=== PATIENT | male | born 1970 | race Caucasian/White ===

== ENCOUNTER 2016-09-29 14:49 | Inpatient (IN) | payer BC ==
[2016-09-29] MEDS ORDERED: SODIUM CHLORIDE 0.9% 1000ML 1,000 ML IVS ONE ×2 (15:10→15:58)
--- NOTE | 2016-09-29 15:20 | ED.PDOC ---
History of Present Illness - General Chief Complaint: GI Problem Stated Complaint: diarrhea x3 days Time Seen by Provider: 09/29/16 15:07 Information Source: patient, RN notes reviewed, Vital Signs reviewed Exam Limitations: no limitations - History of Present Illness Initial Comments: Patient reports explosive diarrhea for 3 days. + nausea, no vomiting. Yesterday he took a whole bottle of Imodium and some pills. Since then he has had 2 episodes of diarrhea. No blood in his stool. Reports abd pain that is intermittent, sharp and crampy. He did pass out last night but denies any injury. Here because he has hardly urinated at all in 2 days and feels he is very dehydrated. Abdominal Pain Onset Location: generalized abdomen Pain Radiation: no radiation Quality: moderate, cramping, intermittent, stabbing Timing/Duration: days - 3 Improving Factors: medication - Impdium Worsening Factors: nothing Associated Symptoms: diarrhea, fatigue, nausea/vomiting, syncope Review of Systems - Review of Systems Constitutional: States: chills, malaise. Denies: fever Respiratory: States: no symptoms reported. Denies: short of breath Cardiology: States: syncope. Denies: chest pain, palpitations Gastrointestinal/Abdominal: States: see HPI, abdominal pain, diarrhea, nausea. Denies: vomiting Musculoskeletal: States: no symptoms reported Skin: States: no symptoms reported Neurological: States: no symptoms reported Past Medical History (General) - Patient Medical History Hx Hypertension: Yes - Vaccination History Hx Tetanus, Diphtheria Vaccination: No Hx Influenza Vaccination: No Hx Pneumococcal Vaccination: No - Social History Hx Tobacco Use: No Hx Alcohol Use: No Hx Substance Use: No Hx Substance Use Treatment: No Hx Depression: No - Activities of Daily Living Hospice Agency (if applicable):: None - Female History Patient is a Female of Child Bearing Age (10 -59 yrs old): No Patient : No Family Medical History - Family History Mother Family History: Unknown Physical Exam - Physical Exam General Appearance: Alert, Comfortable, No apparent distress, Well Developed, Well Groomed, Well Nourished Eyes, Ears, Nose, Throat Exam: other - Dry mucous membranes Neck: non-tender, full range of motion, supple, normal inspection Respiratory: chest non-tender, lungs clear, normal breath sounds, no respiratory distress, no accessory muscle use Cardiovascular/Chest: normal peripheral pulses, regular rate, rhythm, no edema, no gallop, no JVD, no murmur Peripheral Pulses: 2+ Gastrointestinal/Abdominal: non tender, soft, no organomegaly, no pulsatile mass , abnormal bowel sounds - hyperactive Extremity: normal range of motion, non-tender, normal inspection, no pedal edema Neurologic: no motor/sensory deficits, alert, normal mood/affect, oriented x 3 Skin Exam: normal color, warm/dry Comments: Vital Signs - 24 hr 09/29/16 14:55 Temperature 97.5 F L Pulse Rate [ 81 pulse ox] Respiratory 20 Rate Blood Pressure 119/84 [Left Arm] O2 Sat by Pulse 97 Oximetry Progress - Progress Progress: 09/29/16 15:21 Patient with what sounds to be severe dehydration due to diarrhea. Will check labs, especially kidney function. Hydrate with IV fluids. 09/29/16 16:00 Discussed lab results with patient and . Will admit to hospital for dehydration with acute renal failure. Patient discussed with Chinyere Roman NP - hospitalist, who agrees to admission. - Results/Orders Results/Orders: Laboratory Tests 09/29/16 15:05 WBC 16.5 H RBC 6.95 H* Hgb 21.8 H* Hct 66.8 H* MCV 96.2 H MCH 31.3 H MCHC 32.7 L RDW 15.5 H Plt Count 233 MPV 10.9 H Absolute Neuts (auto) 12.20 H Absolute Lymphs (auto) 2.10 Absolute Monos (auto) 1.90 H Absolute Eos (auto) 0.20 Absolute Basos (auto) 0.00 Neutrophils % 74.1 Lymphocytes % 12.7 L Monocytes % 11.6 H Eosinophils % 1.5 Basophils % 0.1 Sodium 134 L Potassium 4.8 Chloride 105 Carbon Dioxide 21 Anion Gap 12.8 BUN 42 H Creatinine 4.51 H BUN/Creatinine Ratio 9.3 L Random Glucose 68 L Serum Osmolality 277.0 Calcium 8.8 Total Bilirubin 1.2 H AST 29 ALT 34 Alkaline Phosphatase 65 Serum Total Protein 8.2 Albumin 4.7 Globulin 3.5 Albumin/Globulin Ratio 1.3 Departure - Departure Clinical Impression: Diarrhea, Severe dehydration Acute renal failure Qualifiers: Acute renal failure type: unspecified Qualifier Code: (N17.9) Acute kidney failure, unspecified Time of Disposition: 16:02 Disposition: Admit Patient Condition: Poor Departure Forms: ED Discharge - Pt. Copy, Patient Portal Self Enrollment Referrals: Nathaniel Hanson MD [Primary Care Provider] - 1-2 Weeks Decision To Admit - Decistion To Admit Decision to Admit Reason: Admit from ER - Acute renal failure, Severe Dehydration
--- NOTE | 2016-09-29 15:41 | RAD ---
EXAM DESCRIPTION: Abdomen Flat Upright CLINICAL HISTORY: 46 years Male, abd pain/diarrhea IMPRESSION: 2 views of the abdomen reveal no free air. A few air-fluid levels are noted which can be seen with a mild ileus. No evidence of dilated small bowel loops at this time. Electronically signed by: J Luis Pereira MD 09/29/2016 3:40 PM CDT
--- NOTE | 2016-09-29 16:25 | HP ---
SUPERVISING PHYSICIAN: Jose Ramon Ackerman MD CHIEF COMPLAINT: Abdominal pain and explosive diarrhea times 48 hours. HISTORY OF PRESENT ILLNESS: This is a 46-year-old male patient who says he started with explosive diarrhea about every 15 minutes on Tuesday. He denied any nausea or vomiting. It actually slowed down to about every 30 minutes during the next day and yesterday he actually took a whole bottle of Imodium as well as some antidiarrheal pills. He was in the shower today and he had not urinated since the night before and he was clean up some stool that had been in the shower and he passed out. He woke up later. There was no known traumatic injury. He had not urinated in 36 hours. At that point, he decided to come into the Emergency Room. In the Emergency Room, he was given almost 2 liters of fluid. He had no stools in the Emergency Room. His hemoglobin was 21.8, hematocrit 66.8, WBCs 16.5, BUN 42, creatinine 4.51. The patient has multiple family members, including a grandchild, that have had diarrhea and he thinks his grandson has rotavirus, but he is unsure of that diagnosis. I was called for admission for severe dehydration and acute renal failure. PAST MEDICAL HISTORY: 1. Acquired renal cyst. 2. Essential hypertension. 3. Testosterone deficiency. 4. Elevated hematocrit. PAST SURGICAL HISTORY: 1. Vasectomy in 2015. 2. Lumbar laminectomy in 1998. 3. Right thumb amputation in 2013. OUTPATIENT MEDICATIONS: 1. Amlodipine. 2. Edarbi. 3. Testosterone 400 mg IM weekly. ALLERGIES: NO KNOWN DRUG ALLERGIES. SOCIAL HISTORY: He is . He has two children and one stepchild. He denies any tobacco, ETOH or illicit drug use. REVIEW OF SYSTEMS: GENERAL: He complains of weakness and fatigue, denies any weight changes or fever. HEENT: Denies sinus symptoms, ear pain, vision changes or sore throat. RESPIRATORY: Denies wheezing, coughing or shortness of breath. CARDIAC: Denies chest pain, palpitations or tachycardia. GASTROINTESTINAL: As per the history of present illness with the addition that he feels like his stomach is very gassy. In fact, he calls it "gurgling" with an extreme amount of belching and epigastric discomfort. GENITOURINARY: Denies hematuria, dysuria or polyuria. NEUROLOGIC: Denies headache, dizziness, or seizures. PHYSICAL EXAMINATION: VITAL SIGNS: Afebrile. Heart rate 84. Blood pressure 119/84. Respiratory rate 20. O2 saturation 97%. GENERAL: This is a 46-year-old male patient who is lying in his hospital bed. He is in no acute distress. HEENT: Normocephalic, atraumatic. Pupils are equal and reactive. Oropharynx is clear. Oral mucous membranes are dry. Lips are cracked. NECK: Supple without mass. RESPIRATORY: Clear to auscultation bilaterally. CHEST: There is equal rise and fall of the chest with inspiration and expiration. CARDIAC: Regular rate and rhythm. ABDOMEN: Soft, nondistended, nontender. Bowel sounds are very hyperactive. EXTREMITIES: No cyanosis, clubbing or edema. He does have poor skin turgor. NEUROLOGIC: Awake, alert and oriented times three. LABORATORY: As per the history of present illness plus his sodium is 134, potassium 4.8, chloride 105, carbon dioxide 21. Total bilirubin 1.2. Abdominal x-ray shows two views of the abdomen, but revealed no free air. A few air-fluid levels are noted which can be seen with a mild ileus. No evidence of dilated small bowel loops at this time. All other labs and films have been reviewed via the EMR. ASSESSMENT: 1. Acute renal failure. 2. Diarrhea, most likely due to viral gastroenteritis. 3. Leukocytosis, most likely due to dehydration and gastroenteritis. 4. Dehydration, due to #2.. 5. Hypertension. 6. History of elevated hematocrit on high dose testosterone therapy. PLAN: We will admit the patient to the hospital. I will continue to hydrate him. We will repeat his labs in the morning. I have also added stools studies as well as a UA. I have also done an H. pylori antibody test. He will have proton pump inhibitor for ulcer prophylaxis and Lovenox for deep venous thrombosis prophylaxis. We will have to monitor his labs closely and followup as needed. Hopefully he can be discharged in the next couple of days. He is getting a very high amount of weekly testosterone, and I have encouraged him to speak with his primary care provider about his large administration of testosterone. We will continue to follow the patient closely and followup as needed. Dr. Ackerman is the collaborating physician and available for consultation. #[id number] [facility]
[2016-09-29] MEDS ORDERED: DEX 5% W/NACL 0.45% 1000ML 1,000 ML IVS ONE (17:52)
[2016-09-29] MEDS: DEX 5% W/NACL 0.45% 1000ML 1,000 ML IVS PRN (18:03)
[2016-09-29] MEDS ORDERED: SODIUM CHLORIDE 0.9% (FLUSH) 10 ML SYG IV PRN (19:14)
[2016-09-29] MEDS ORDERED: ACETAMINOPHEN 325 MG TAB PO PRN (19:19)
[2016-09-29] MEDS ORDERED: TEMAZEPAM 15 MG CAP PO PRN (19:19)
[2016-09-29] MEDS ORDERED: IV SET AND CAP CHANGE INJ INJ SCH (19:30)
[2016-09-29] MEDS ORDERED: ENOXAPARIN SODIUM 30 MG/0.3 ML SYG SUBCU SCH (19:30)
[2016-09-29] MEDS ORDERED: PANTOPRAZOLE SODIUM IV 40 MG VIAL IV SCH (19:30)
[2016-09-29] MEDS ORDERED: ALUMINUM & MAGNESIUM HYDROXIDE 30 ML UD PO ONE (20:00)
[2016-09-30] MEDS: DEX 5% W/NACL 0.45% 1000ML 1,000 ML IVS PRN ×2 (01:58→11:00)
[2016-09-30] MEDS ORDERED: DEXTROSE 5% 1000ML 1,000 ML IVS ONE ×2 (11:44→15:03)
--- NOTE | 2016-09-30 13:35 | PN ---
SUPERVISING PHYSICIAN: Jose Ramon Ackerman MD DATE: 09/30/16 SUBJECTIVE: The patient is sitting up in his bed with no complaints of chest pain, shortness of breath, nausea, vomiting, diarrhea. He states he feels so much better than yesterday. He is actually ambulating in the [place]ora and continues to have no diarrhea and he is voiding sufficiently. OBJECTIVE: VITAL SIGNS: Afebrile. Heart rate 85. Blood pressure 120/73. Respiratory rate 20. O2 saturation 97% on room air. Intake is 3,348 cc and output is 2700 cc. GENERAL: This is a 46-year-old male patient laying in his hospital bed. He is in no acute distress. LUNGS: Clear to auscultation bilaterally. CARDIAC: Regular rate and rhythm. ABDOMEN: Soft, nontender, nondistended. Bowel sounds are positive. EXTREMITIES: No cyanosis, clubbing or edema. NEUROLOGIC: Awake, alert and oriented times three. LABORATORY: WBC have decreased from 16.5 to 11.1. Hemoglobin 19 and has decreased from 21.8. Hematocrit from 66.8 to 57 today. Sodium 136, potassium 4.7, chloride 113, carbon dioxide 20, BUN has decreased from 42 yesterday to 36 today. Creatinine was 4.51 yesterday and 2.53 today. Calcium 8.3, total bilirubin 1.1. Urinalysis is basically within normal limits. H. pylori is negative. Stool occult blood is positive. Stool Norovirus is pending. Rotavirus antigen is negative. Preliminary stool culture shows no enteric pathogens isolated at 24 hours. All other labs and films have been reviewed via the EMR. ASSESSMENT: 1. Acute renal failure. 2. Diarrhea, most likely due to viral gastroenteritis. 3. Leukocytosis, most likely due to dehydration and gastroenteritis. 4. Dehydration, due to #2.. 5. Hypertension. 6. History of elevated hematocrit on high dose testosterone therapy. PLAN: We will continue present supportive care. I have discontinued his primary IV and I am going to give him 1 liter of D5W with 1.5 amps of bicarb. His creatinine has dropped 2 points overnight, but is still quite high, so I will repeat those labs studies in the morning. Hemoglobin and hematocrit have also improved, but he most likely runs elevated H&H due to his high testosterone dosage. I have not restarted his blood pressure meds yet so will watch his b/p closely. He is walking around in the halls and ambulating without problems. He is also voiding without problems, so we will continue to monitor him closely. He should be ready to go home tomorrow with close followup with Dr. Hanson to recheck his creatinine as well as to check his H&H. I have strongly suggested that he reevaluate and discuss with his primary care physician his testosterone dosage and he has agreed that he does take too much. We will continue to monitor closely and followup as needed. Dr. Ackerman is the collaborating physician and available for consultation. #[id number] [facility]
[2016-09-30] MEDS ORDERED: SODIUM BICARBONATE 10MEQ/10ML 75 MEQ in DEXTROSE 5% 1000ML 1,000 ML IV ONE (14:34)
[2016-09-30] MEDS ORDERED: SODIUM BICARBONATE VIAL 50 MEQ/50 ML VIAL ONE (15:02)
[2016-09-30] MEDS ORDERED: SODIUM BICARBONATE VIAL 75 MEQ in DEXTROSE 5% 1000ML 1,000 ML IV ONE (16:00)
[2016-09-30] MEDS ORDERED: PANTOPRAZOLE SODIUM IV 40 MG VIAL IV SCH (21:00)
[2016-09-30] MEDS ORDERED: ENOXAPARIN SODIUM 30 MG/0.3 ML SYG SUBCU SCH (21:00)
[2016-10-01 07:22] VITALS: BP 111/65; TEMP 98.5; O2SAT 95
--- NOTE | 2016-10-05 09:54 | DS ---
SUPERVISING PHYSICIAN: Nathaniel Hanson MD DISCHARGE DIAGNOSIS: 1. Acute renal failure. 2. Diarrhea, most likely due to viral gastroenteritis. 3. Leukocytosis, most likely due to dehydration and gastroenteritis. 4. Dehydration, due to #2.. 5. Hypertension. 6. History of elevated hematocrit on high dose testosterone therapy. HISTORY OF PRESENT ILLNESS: This is a 46-year-old male patient who had explosive diarrhea that started on Tuesday, which was three days prior to his admission. He denied any nausea or vomiting. During the next couple of days, he continued to have the explosive diarrhea. He had family members that had the same thing and, in fact, he had a grandson that he thought had rotavirus. He became increasingly weaker and weaker to the point that he had not urinated in about 36 hours. He had gone into try to clean up and somehow fell and passed out. There was no traumatic injury noted. He was so weak at that point that he decided to come into the Emergency Room. In the Emergency Room, he was given 2 liters of fluids. He had no stools in the Emergency Room. His hemoglobin was 21, hematocrit 66.8. WBCs 16.5, BUN 42, creatinine 4.51. He was admitted to the hospital for acute renal failure and severe dehydration. HOSPITAL COURSE: The patient received 3 more liters of IV fluids including 1 liter with sodium bicarbonate. H. pylori test was negative. Occult blood was positive. Stool culture showed no enteric pathogens. He progressively improved over the next two days. BUN went from 42 to 21 and creatinine went from 4.51 to 1.54. Leukocytes started at 16.5 and went to 8.9. Hemoglobin was 21.8 and on discharge was 18.2. Hematocrit was 66.8 and on discharge was 53.7. At this point, he can be discharged home with close followup with his primary care physician, Dr. Hanson. DISCHARGE PLAN: The patient will be discharged in stable condition. He is to continue increasing his fluids. He does take fairly high doses of testosterone which may have contributed to his hemoglobin and hematocrit being somewhat elevated. I have encouraged him to talk to his primary care physician about his testosterone dosage. He has a followup with Dr. Hanson on 10/11/16 at 2:30. He is to return to the hospital for any problems. At his followup visit, he needs a CMP and CBC drawn to check his labs. DISCHARGE MEDICATIONS: 1. Amlodipine. 2. Edarbi. Dr. Hanson is the collaborating physician and available for consultation. #[id number] [facility]
== END 2016-10-01 09:00 | disposition home or self-care (01) | DRG 684 ==
LOC: ER 14:49 → MS 16:24
PROVIDERS: ADMIT Nurse Practitioner Acute Care; ATTEND Nurse Practitioner Acute Care
DX: N17.9 Acute kidney failure, unspecified (principal); A08.4 Viral intestinal infection, unspecified; E86.0 Dehydration; I10 Essential (primary) hypertension; E29.1 Testicular hypofunction; Z79.890 Hormone replacement therapy; Z79.899 Other long term (current) drug therapy; R71.8 Other abnormality of red blood cells

== ENCOUNTER → 2016-12-03 | Outpatient (CLI) | payer BC | END | disposition home or self-care (01) | LOC: LAB.O 13:00 | PROVIDERS: ATTEND Family Medicine | DX: D45 Polycythemia vera (principal) ==

== ENCOUNTER → 2017-05-16 | Outpatient (CLI) | payer SELFPAY | END | disposition home or self-care (01) | LOC: LAB.O 14:23 | PROVIDERS: ATTEND Family Medicine | DX: D45 Polycythemia vera (principal) ==

== ENCOUNTER → 2018-09-13 | Outpatient (CLI) | payer BC ==
--- NOTE | 2018-09-13 13:04 | CT ---
EXAM DESCRIPTION: CT ABDOMEN WITH CONTRAST CLINICAL HISTORY: ABNORMAL SERUM ENZYMES COMPARISON: Previous CT abdomen and pelvis June 03, 2015 TECHNIQUE: CT of the abdomen is performed during IV bolus administration of routine adult dose of nonionic iodinated contrast. No oral contrast. FINDINGS: The lung bases are clear of infiltrate. Liver is normal in size and parenchymal appearance. No bile duct dilatation. No stones in the gallbladder. Multiple benign appearing left renal cysts, the largest measuring 9.3 cm. Spleen, pancreas, and kidneys are otherwise unremarkable. No inflammatory changes around the pancreas. There is no lymphadenopathy, inflammation, or free fluid observed. Extensive sigmoid diverticulosis without acute appearing diverticulitis. Degenerative narrowing of the disc space at L5-S1. Coronal and sagittal reformatted images confirm the findings. Appendix appears normal. IMPRESSION: No acute upper abdominal process. This exam was performed according to our departmental dose-optimization program, which includes automated exposure control, adjustment of the mA and/or kV according to patient size and/or use of iterative reconstruction technique. Electronically signed by: Brad Bundy MD 09/13/2018 1:00 PM CDT
== END ==
LOC: LAB.O 10:10
PROVIDERS: ATTEND Family Medicine
DX: R74.8 Abnormal levels of other serum enzymes (principal); D45 Polycythemia vera

== ENCOUNTER → 2018-09-20 | Outpatient (CLI) | payer BC | LOC: LAB.O 08:58 | PROVIDERS: ATTEND Family Medicine | DX: D45 Polycythemia vera (principal) ==

== ENCOUNTER → 2018-09-28 | Outpatient (CLI) | payer BC | LOC: LAB.O 12:28 | PROVIDERS: ATTEND Family Medicine | DX: D45 Polycythemia vera (principal) ==

== ENCOUNTER → 2018-11-27 | Outpatient (CLI) | payer BC | LOC: LAB.O 10:13 | PROVIDERS: ATTEND Family Medicine | DX: D45 Polycythemia vera (principal) ==

== ENCOUNTER → 2019-04-02 | Outpatient (CLI) | payer BC | LOC: LAB.O 14:07 | PROVIDERS: ATTEND Family Medicine | DX: D45 Polycythemia vera (principal) ==

== ENCOUNTER → 2019-05-15 | Outpatient (CLI) | payer BC | END | disposition home or self-care (01) | LOC: LAB.O 10:17 | PROVIDERS: ATTEND Family Medicine | DX: D45 Polycythemia vera (principal) ==

== ENCOUNTER → 2019-07-31 | Outpatient (CLI) | payer BC ==
--- NOTE | 2019-07-31 12:39 | MRI ---
Study: MRI of the Right Hip. Indication: PRIMARY OSTEOARTHRITIS RIGHT HIP Technique: Multiplanar, multi sequence MRI of the right hip was obtained without intravenous contrast. Comparison: CT pelvis September 13, 2018. Findings: Extensive grade 4 chondral loss of the majority of the right hip joint with patchy areas of cortical remodeling and subchondral cystic change anterior superior acetabulum. Additional subchondral marrow edema of the anterior superior femoral head and posterior margin of the acetabulum. Tiny joint line osteophytes. Prominent cam deformity. Degeneration throughout the anterior superior right hip labrum. Moderate-sized joint effusion. No acute fracture or osteonecrosis. Severe pubic symphysis osteoarthritis with reactive marrow edema in the pubic bones. Moderate fluid distention right iliopsoas bursa. At least mild to moderate left hip osteoarthritis. Pronounced L5-S1 disc disease. Tendinosis bilateral gluteus minimus/medius tendon insertions and bilateral hamstring tendon origins. Impression: Moderate to severe right hip osteoarthritis with moderate-sized joint effusion, labral degeneration, and fluid distention of the iliopsoas bursa. No acute fracture or osteonecrosis. Sterility of the effusion nonspecific by this exam. Correlation with ESR and CRP recommended. Electronically signed by: Ajay Miller MD 07/31/2019 12:37 PM [facility]
== END ==
LOC: MRI 08:10
PROVIDERS: ATTEND Family Medicine
DX: M16.11 Unilateral primary osteoarthritis, right hip (principal); M25.451 Effusion, right hip; M25.851 Other specified joint disorders, right hip

== ENCOUNTER 2019-09-04 05:40 | Day surgery (SDC) | payer BC ==
[2019-09-04] MEDS ORDERED: LACTATED RINGERS 1,000 ML ONE (06:14)
[2019-09-04] MEDS ORDERED: methylPREDNISolone ACETATE 80 MG/ML VIAL ONE (08:17)
[2019-09-04] MEDS ORDERED: LIDOCAINE 1% W/ EPINEPHRINE 20 ML VIAL INJ ONE (08:17)
[2019-09-04] MEDS ORDERED: BUPIVACAINE 0.25% INJ 30 ML VIAL INJ ONE ×2 (08:17→11:05)
[2019-09-04] MEDS ORDERED: LIDOCAINE 1% 10 ML VIAL INJ ONE ×2 (10:00→11:05)
[2019-09-04] MEDS ORDERED: PROPOFOL 200 MG/20 ML VIAL IV ONE (10:00)
[2019-09-04] MEDS ORDERED: methylPREDNISolone ACETATE 80 MG/ML VIAL INJ ONE (11:05)
[2019-09-04 12:04] VITALS: BP 123/86; TEMP 98; O2SAT 94
--- NOTE | 2019-09-05 10:26 | OP ---
DATE OF PROCEDURE: 09/04/19 PREOPERATIVE DIAGNOSIS: 1. Osteoarthritis of the right hip. POSTOPERATIVE DIAGNOSIS: 1. Osteoarthritis of the right hip. PROCEDURE: 1. Intraarticular injection under sedation. SURGEON: Baldemar Rabago MD. COMMERCIAL TIRE SERVICE TECHNICIAN: Aj López CST, SA-C. ANESTHESIA: Conscious sedation. COMPLICATIONS: None. FINDINGS: Severe arthritis of the hip. INDICATION: Edward has a history of worsening severe pain in the hip. It has gotten to the point where he has quite a bit of difficulty with his daily activities. We talked about options and although he is a candidate for surgical intervention, he would like to try injection for at least short-term relief. After discussing the risks, benefits and alternatives to that, the patient has given informed consent for that. PROCEDURE: The patient was brought to the Operating Room and placed in supine position. Conscious sedation was administered and the leg was flexed, abducted and externally rotated. The groin was prepped and fluoroscopic imaging was used to confirm needle placement into the hip joint through a medial portal. Once placement had been confirmed, a combination of lidocaine and Depo-Medrol were injected into the joint. After injection, the needle was withdrawn. Pressure was held on the injection site. A sterile band-aid was placed. The patient was then taken back to the Day Surgery Unit. POSTOPERATIVE PLAN: The patient will be weight-bearing as tolerated. The patient will followup with us in about 2 weeks. #[id number] [facility]
--- NOTE | 2019-09-05 19:42 | RAD ---
EXAM DESCRIPTION: Fluoroscopy Up to 1Hr: RF. CLINICAL HISTORY: 49 years Male HIP INJECTION . Right COMPARISON: Pelvis radiograph August 30. Hip MRI March 2019. IMPRESSION: Single AP fluoroscopic image taken by the referring physician intraoperatively during HIP INJECTION. Right No complicating process is demonstrated. Please refer to surgical report for specific details. Total fluoroscopic time was less than 1 minute. Permanent images of this procedure are stored in the patient's medical record. Electronically signed by: Aj Eldridge MD 09/05/2019 7:40 PM CDT
== END 2019-09-04 11:55 | disposition home or self-care (01) ==
LOC: AMB 05:40
PROVIDERS: ATTEND Orthopaedic Surgery
DX: M16.11 Unilateral primary osteoarthritis, right hip (principal)
CPT/HCPCS: 01200; 20610; 76000; 80307; J1030; J3490; J7120

== ENCOUNTER 2019-12-25 05:27 | Day surgery (SDC) | payer BC ==
[2019-12-25] MEDS ORDERED: LACTATED RINGERS 1,000 ML ONE (06:29)
[2019-12-25] MEDS ORDERED: BUPIVACAINE 0.25% INJ 30 ML VIAL INJ ONE (09:13)
[2019-12-25] MEDS ORDERED: methylPREDNISolone ACETATE 80 MG/ML VIAL ONE (09:13)
[2019-12-25] MEDS ORDERED: LIDOCAINE 1% W/ EPINEPHRINE 20 ML VIAL INJ ONE (09:13)
[2019-12-25] MEDS ORDERED: LIDOCAINE 1% 10 ML VIAL INJ ONE (10:00)
[2019-12-25] MEDS ORDERED: PROPOFOL 200 MG/20 ML VIAL IV ONE (10:00)
[2019-12-25 11:18] VITALS: BP 110/77; TEMP 97.8; O2SAT 95
--- NOTE | 2019-12-26 09:11 | RAD ---
EXAM DESCRIPTION: Fluoroscopy Up to 1Hr CLINICAL HISTORY: 49 years Male, RIGHT HIP INJ COMPARISON: None. IMPRESSION: Multiple intraoperative fluoroscopic images saved for the benefit of the surgeon for right hip injection. Please see procedure report for full details. Fluoroscopy time: 5 seconds Fluoroscopic images: 1 Electronically signed by: Emory Peña MD 12/26/2019 9:10 AM CDT
--- NOTE | 2019-12-27 07:59 | OP ---
DATE OF PROCEDURE: 12/25/19 PREOPERATIVE DIAGNOSIS: 1. Osteoarthritis of the right hip. POSTOPERATIVE DIAGNOSIS: 1. Osteoarthritis of the right hip. PROCEDURE: 1. Intraarticular injection of the right hip. SURGEON: Baldemar Rabago MD. BEREAVEMENT PROGRAM COORDINATOR: Aj López CST, SA-C. ANESTHESIA: Conscious sedation. COMPLICATIONS: None. FINDINGS: Severe arthritis of the hip. INDICATION: Mr. Reyez has a history of pain secondary to his arthritis associated with his hip. Because of his ongoing discomfort, he has requested intraarticular injection. After discussing the risks, benefits and alternatives to that, the patient has given informed consent for that. PROCEDURE: The patient was brought to the Operating Room and placed in supine position. Conscious sedation was administered and the leg was flexed, abducted and externally rotated. The groin was prepped and fluoroscopic imaging was used to confirm needle placement into the hip joint through a medial portal. Once placement had been confirmed, a combination of lidocaine and Depo-Medrol were injected into the joint. After injection, the needle was withdrawn. Pressure was held on the injection site. A sterile band-aid was placed. The patient was then taken back to the Day Surgery Unit. POSTOPERATIVE PLAN: The patient will be weightbearing as tolerated. The patient will followup with us in a couple of weeks. The plan is to perform a total hip arthroplasty in the near future. [facility][id number] [facility]
== END 2019-12-25 11:15 | disposition home or self-care (01) ==
LOC: AMB 05:27
PROVIDERS: ATTEND Orthopaedic Surgery
DX: M16.11 Unilateral primary osteoarthritis, right hip (principal); I10 Essential (primary) hypertension; F32.9 Major depressive disorder, single episode, unspecified; F17.220 Nicotine dependence, chewing tobacco, uncomplicated; Z79.899 Other long term (current) drug therapy
CPT/HCPCS: 20610; 76000; J1030; J3490; J7120

== ENCOUNTER → 2020-05-12 | Outpatient (CLI) | payer BC ==
--- NOTE | 2020-05-12 13:20 | RAD ---
EXAM DESCRIPTION: Hip,Right 2 Views CLINICAL HISTORY: Right hip joint pain. primary osteroarthritis COMPARISON: None. TECHNIQUE: 2 views right FINDINGS: Loss of joint space is observed. Sclerosis of the articular surfaces is noted. Femoral head osteophyte formation is observed. No fracture is detected. IMPRESSION: Moderate degenerative changes are observed in the right hip. Electronically signed by: Emeterio Pineda MD 05/12/2020 1:19 PM [facility]
--- NOTE | 2020-05-12 13:21 | RAD ---
EXAM DESCRIPTION: Pelvis,2 or More Views CLINICAL HISTORY: right pelvis unilateral primary osteoarthritis COMPARISON: None. TECHNIQUE: AP pelvis and bilateral hips FINDINGS: Loss of joint space is observed in the right hip. Some sclerosis of the articular surfaces are observed. Minimal femoral head osteophyte formation is observed in the right. The left hip is normal. The pelvis is intact. Phleboliths are observed in the pelvis. No fracturing is detected. IMPRESSION: Moderate degenerative changes are observed in the right hip. Electronically signed by: Emeterio Pineda MD 05/12/2020 1:20 PM [facility]
== END ==
LOC: LAB.O 08:54
PROVIDERS: ATTEND Orthopaedic Surgery
DX: Z01.818 Encounter for other preprocedural examination (principal); M16.11 Unilateral primary osteoarthritis, right hip

== ENCOUNTER → 2020-07-24 | Outpatient (CLI) | payer BC | LOC: LAB.O 12:07 | PROVIDERS: ATTEND Orthopaedic Surgery | DX: Z01.818 Encounter for other preprocedural examination (principal) ==

== ENCOUNTER 2020-07-29 05:51 | Inpatient (IN) | payer BC ==
[~2020-07-29 05:51] MED LIST: LACTATED RINGERS 1,000 ML ONE; SODIUM CHL 0.9% 100ML MINI-BAG 100 ML IVPB ONE; SODIUM CHLORIDE 0.9% (FLUSH) 10 ML SYG ONE; SODIUM CHLORIDE 0.9% 100ML 100 ML IVPB ONE; SODIUM CHLORIDE 0.9% 250ML 250 ML ONE; TRANEXAMIC ACID 1,000 MG/10 ML VIAL ONE; VANCOMYCIN HCL INJ 1,000 MG VIAL IVPB ONE; ceFAZolin SODIUM 1 GM VIAL ONE
[2020-07-29] MEDS ORDERED: MIDAZOLAM INJ 5 MG/5 ML VIAL ONE (06:16)
[2020-07-29] MEDS ORDERED: HYDROmorphone HCL INJ 2 MG/ML VIAL ONE (06:16)
[2020-07-29] MEDS ORDERED: KETAMINE HCL 100 MG/ML VIAL ONE (06:16)
[2020-07-29] MEDS ORDERED: FAMOTIDINE INJ 10 MG/ML VIAL IV ONE (06:16)
[2020-07-29] MEDS ORDERED: BUPIVACAINE 0.5% 30 ML VIAL INJ ONE ×2 (06:22→06:48)
[2020-07-29] MEDS ORDERED: BUPIVACAINE LIPOSOME 13.3 MG/ML VIAL INJ ONE ×2 (06:22→06:48)
[2020-07-29] MEDS ORDERED: ceFAZolin SODIUM 1 GM VIAL ONE ×2 (06:22→23:49)
[2020-07-29] MEDS ORDERED: VANCOMYCIN HCL INJ 1,000 MG VIAL IVPB ONE ×2 (06:22→06:48)
[2020-07-29] MEDS ORDERED: LACTATED RINGERS 1,000 ML IVS ONE ×2 (06:25)
[2020-07-29] MEDS ORDERED: TRANEXAMIC ACID 1,000 MG/10 ML VIAL IV ONE (06:26)
[2020-07-29] MEDS ORDERED: ceFAZolin SODIUM 1 GM VIAL IRRIG ONE (06:48)
[2020-07-29] MEDS ORDERED: ELECTROLYTE-A 1,000 ML IVS ONE ×2 (07:57→09:24)
[2020-07-29] MEDS ORDERED: traMADol HCL 50 MG TAB PO PRN (09:40)
[2020-07-29] MEDS ORDERED: BISACODYL SUPPOSITORY 10 MG PR PRN (09:40)
[2020-07-29] MEDS ORDERED: PROMETHAZINE HCL INJ 12.5 MG in SODIUM CHLORIDE 0.9% 50ML 50 ML IVPB PRN (09:40)
[2020-07-29] MEDS ORDERED: CYCLOBENZAPRINE HCL 10 MG TAB PO PRN (09:40)
[2020-07-29] MEDS ORDERED: MORPHINE SULFATE INJ 10 MG/ML VIAL IM PRN (09:40)
[2020-07-29] MEDS ORDERED: MORPHINE SULFATE INJ 10 MG/ML VIAL IV PRN (09:40)
[2020-07-29] MEDS ORDERED: ACETAMINOPHEN 325 MG TAB PO PRN (09:40)
[2020-07-29] MEDS ORDERED: PROMETHAZINE HCL INJ 25 MG in SODIUM CHLORIDE 0.9% 50ML 50 ML IVPB PRN (09:40)
[2020-07-29] MEDS ORDERED: ONDANSETRON INJ 4 MG/2 ML VIAL IV PRN (09:40)
[2020-07-29] MEDS ORDERED: DEX 5% W/NACL 0.45% 1000ML 1,000 ML IVS PRN (09:40)
[2020-07-29] MEDS ORDERED: ACETAMINOPHEN 500 MG TAB PO PRN (09:40)
[2020-07-29] MEDS ORDERED: ALUMINUM & MAGNESIUM HYDROXIDE 30 ML UD PO PRN (09:40)
[2020-07-29] MEDS ORDERED: MAGNESIUM HYDROXIDE 30 ML UD PO PRN (09:40)
[2020-07-29] MEDS ORDERED: hydrOXYzine HCl 25 MG TAB PO PRN (09:40)
[2020-07-29] MEDS ORDERED: SODIUM CHLORIDE 0.9% (FLUSH) 10 ML SYG IV PRN (09:40)
[2020-07-29] MEDS ORDERED: TEMAZEPAM 15 MG CAP PO PRN (09:40)
[2020-07-29] MEDS ORDERED: NALOXONE HCL INJ 0.4 MG/ML VIAL IV PRN (09:40)
[2020-07-29] MEDS ORDERED: ZOLPIDEM TARTRATE 5 MG TAB PO PRN (09:40)
[2020-07-29] MEDS ORDERED: BENZOCAINE-MENTH LOZ (CEPACOL) 1 EA LOZ MT PRN (09:40)
[2020-07-29] MEDS ORDERED: IV SET AND CAP CHANGE INJ INJ SCH (10:00)
[2020-07-29] MEDS ORDERED: MORPHINE PCA 1 MG/ML 100 ML BAG IVPB SCH (10:00)
[2020-07-29] MEDS ORDERED: CADD ADMIN SET 1 EA PKG INJ ONE (10:14)
--- NOTE | 2020-07-29 13:13 | CONS ---
DATE OF CONSULTATION: 07/29/20 SUPERVISING PHYSICIAN: Juan Blackmon MD REASON FOR CONSULTATION: Right total hip arthroplasty, postoperative care. HISTORY OF PRESENT ILLNESS: Mr. Reyez is a 50-year-old male patient with a longstanding history of osteoarthritis affecting the right hip. He has had multiple attempts as an outpatient with conservative treatment including physical therapy but has failed to respond to any conservative measures. He therefore requested an elective surgical procedure to help control his pain related to the osteoarthritis in his right hip. He was admitted for elective right total hip arthroplasty. Intraoperatively, he had no complications. He was admitted in immediate postoperative state in stable condition. PAST MEDICAL HISTORY: 1. Carotid artery stenosis, mild, diagnosed in 2019. 2. Hypertension, diagnosed at age 17. 3. Polycythemia. PAST SURGICAL HISTORY: 1. Vasectomy in 2015. 2. Laminectomy in 1998. HOME MEDICATIONS: 1. Amlodipine 200 mg at bedtime. 2. Citalopram 1 tablet at bedtime. 3. Edarbi 40 mg at bedtime. ALLERGIES: NO KNOWN DRUG ALLERGIES. FAMILY HISTORY: Noncontributory and unknown. 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 He has previously worked in the [employer]. He is . He has no current history of smoking, routine alcohol use or illicit drugs. REVIEW OF SYSTEMS: CONSTITUTIONAL: Denies any fevers, chills, general malaise or unintentional weight loss. HEENT: Denies headaches, sore throats, earaches, nasal congestion, vision changes. RESPIRATORY: Denies coughing, wheezing or shortness of breath. CARDIOVASCULAR: Denies chest pain, palpitations or syncopal episodes. GASTROINTESTINAL: Denies nausea, vomiting, diarrhea, constipation or abdominal pain. GENITOURINARY: Denies dysuria, hematuria, polyuria. MUSCULOSKELETAL: As noted in history of present illness. SKIN: Denies lesions, rashes, moles or unexplained changes. NEUROLOGIC: Denies ataxia, seizures, paresthesias, syncopal episode. HEMATOLOGIC: Denies unexplained bleeding, bruising or transfusion reactions. PHYSICAL EXAMINATION: VITAL SIGNS: Postoperatively, temperature 97.1, pulse 73, blood pressure 117/65, respirations 12 to 17, saturation 96% to 98% on room air at rest. GENERAL: The patient is resting comfortably in no acute distress. He is alert. HEENT: Tympanic membranes clear bilaterally. Oropharynx is pink, moist without any lesions. NECK: Supple, nontender with full range of motion. No jugular venous distention noted. RESPIRATORY: Lung sounds are clear to auscultation bilaterally without any rhonchi, wheezes or rales. CARDIOVASCULAR: Regular rate and rhythm without any appreciable murmurs, gallops, or rubs. ABDOMEN: Soft, nontender. Positive bowel sounds. EXTREMITIES: Right hip has a postoperative dressing in place over the lateral aspect of the hip with no obvious signs of complications. Distal pulses are strong. Capillary refill is brisk. He does move lower extremity ad rubio. NEUROLOGIC: Cranial nerves II-XII are grossly intact. The patient is alert and oriented times three. SKIN: Warm, pink and dry. LABORATORY: Preoperative BMP shows normal electrolytes. Creatinine 1.03. Calcium 9.3. Urine was without any significant findings. Drug screen was negative. RADIOLOGY: No x-rays available for review. ASSESSMENT: 1. Severe osteoarthritis involving the right hip requiring elective right total hip arthroplasty for symptom control, postoperative day #0. 2. Chronic hypertension, controlled. 3. History of carotid artery disease with mild stenosis. 4. History of polycythemia requiring phlebotomy of 1 unit if his hemoglobin is greater than 18. PLAN: We will follow Mr. Reyez postoperatively as he progresses through his physical therapy and rehabilitation efforts. At this point, he is planning for rehab through [facility]. We will encourage deep breathing exercises, good bronchial hygiene. He will be on DVT prophylaxis per protocol. He will have pain control per protocol. We will defer orthopedic management to Dr. Rabago and Physical Therapy. Until the patient can transition to outpatient management, we will continue to monitor and treat as needed. #[id number] [facility]
[2020-07-29] MEDS ORDERED: PROPOFOL 200 MG/20 ML VIAL IV ONE ×2 (15:33→15:38)
[2020-07-29] MEDS ORDERED: DEXAMETHASONE INJ 10 MG/ML VIAL IV ONE (15:38)
[2020-07-29] MEDS ORDERED: ePHEDrine SULF 50 MG/ML IV ONE (15:38)
[2020-07-29] MEDS ORDERED: PHENYLEPHRINE INJ 1ML 10 MG/ML VIAL IV ONE (15:38)
[2020-07-29] MEDS ORDERED: EPINEPHrine HCL AMP 1 MG/ML AMP IVPB ONE (15:38)
[2020-07-29] MEDS ORDERED: MAGNESIUM SULFATE INJ 1 GM/2 ML VIAL IVPB ONE (15:38)
--- NOTE | 2020-07-29 16:16 | RAD ---
EXAM DESCRIPTION: Pelvis CLINICAL HISTORY: post-op COMPARISON: 12 May 2020 TECHNIQUE: AP pelvis and two-view right hip FINDINGS: The patient is post a right total hip arthroplasty. Positioning is near-anatomic. Mild degenerative changes are observed in the left hip. No hardware failure is detected. Postoperative changes are observed laterally at the hip. Mild degenerative changes are observed in the lower lumbar spine. IMPRESSION: The patient is post new right total hip arthroplasty placement Electronically signed by: Emeterio Pineda MD 07/29/2020 4:14 PM [facility]
[2020-07-29] MEDS: ceFAZolin SODIUM 2 GM in SODIUM CHLORIDE 0.9% 100ML 100 ML IVPB SCH ×2 (16:23→23:53)
[2020-07-29] MEDS: CELECOXIB 100 MG CAP PO SCH (16:50)
[2020-07-29] MEDS: VANCOMYCIN HCL INJ 1,000 MG in SODIUM CHLORIDE 0.9% 250ML 250 ML IVPB SCH (17:39)
[2020-07-29] MEDS ORDERED: amLODIPine BESYLATE 5 MG TAB ONE (20:00)
[2020-07-29] MEDS ORDERED: CITALOPRAM HBR 20 MG TAB ONE (20:00)
[2020-07-29] MEDS ORDERED: ENOXAPARIN SODIUM 30 MG/0.3 ML SYG SUBCU ONE (20:00)
[2020-07-29] MEDS ORDERED: DOCUSATE CALCIUM 240 MG CAP ONE (20:00)
[2020-07-29] MEDS ORDERED: AZILSARTAN MEDOXOMIL 40 MG PO SCH (21:00)
[2020-07-29] MEDS ORDERED: amLODIPine BESYLATE 5 MG TAB PO SCH (21:00)
[2020-07-29] MEDS ORDERED: DOCUSATE CALCIUM 240 MG CAP PO SCH (21:00)
[2020-07-29] MEDS ORDERED: CITALOPRAM HBR 20 MG TAB PO SCH (21:00)
[2020-07-29] MEDS ORDERED: ENOXAPARIN SODIUM 30 MG/0.3 ML SYG SUBCU SCH (23:00)
[2020-07-29] MEDS ORDERED: SODIUM CHLORIDE 0.9% 100ML 100 ML IVPB ONE (23:50)
[2020-07-30 05:30] VITALS: O2SAT 96
[2020-07-30] MEDS: VANCOMYCIN HCL INJ 1,000 MG in SODIUM CHLORIDE 0.9% 250ML 250 ML IVPB SCH (05:56)
[2020-07-30] MEDS ORDERED: MAGNESIUM OXIDE 400 MG TAB PO SCH (09:00)
[2020-07-30] MEDS: CELECOXIB 100 MG CAP PO SCH (09:05)
[2020-07-30] MEDS: ceFAZolin SODIUM 2 GM in SODIUM CHLORIDE 0.9% 100ML 100 ML IVPB SCH (09:05)
[2020-07-30 12:03] VITALS: BP 109/69; TEMP 98.7
--- NOTE | 2020-07-30 13:51 | DS ---
SUPERVISING PHYSICIAN: Juan Blackmon MD DISCHARGE DIAGNOSIS: 1. Severe osteoarthritis involving the right hip requiring elective right total hip arthroplasty for symptom control, postoperative day #1. 2. Chronic hypertension, controlled. 3. History of carotid artery disease with mild stenosis. 4. History of polycythemia requiring phlebotomy of 1 unit if hemoglobin is greater than 18. HISTORY OF PRESENT ILLNESS: This is a 50-year-old male patient with a longstanding history of osteoarthritis mostly affecting the right hip. He has tried multiple conservative outpatient treatments including physical therapy, but has failed to gain any relief with conservative measures. He requested elective surgery to help control his pain per Dr. Baldemar Rabago, orthopedic surgeon. He was admitted for elective right total hip arthroplasty. He was admitted on the date of his procedure. There were no intraoperative complications. He was then admitted to the hospital postoperatively in stable condition. HOSPITAL COURSE: The patient was restarted on his home medications. He had physical therapy for strengthening and conditioning. He required very minimal pain medications. He met his physical therapy requirements and will be discharged home today in congestion with followup with [facility] physical therapy department. LABORATORY: His followup labs showed hemoglobin 13, hematocrit 38.1. Electrolytes were unremarkable. Urinalysis was negative. UDS was negative. His operative procedures and x-rays are per the EMR. DISCHARGE PLAN: the patient will be discharged home on stable condition. He is to resume his previous diet and increase his activity as per physical therapy. He has a followup appointment with Dr. Rabago on 07/31/20. He also will continue with [facility]'s physical therapy department. In addition to his routine home medications, he will also have one week of doxycycline, a prescription of cyclobenzaprine and 11 days of Xarelto. He is to return to the hospital or followup with Dr. Rabago for any problems or complications. DISCHARGE MEDICATIONS: 1. Amlodipine. 2. Edarbi. 3. Citalopram. 4. Doxycycline. 5. Cyclobenzaprine. 6. Xarelto. #[id number] [facility]
[2020-07-31] MEDS ORDERED: SODIUM CHLORIDE 0.9% (FLUSH) 10 ML SYG IV SCH (09:00)
--- NOTE | 2020-07-31 09:00 | PN ---
DATE: 07/30/20 SUBJECTIVE: Edward is doing really well and is ready to go home. OBJECTIVE: Afebrile. Vital signs stable. Dressing is clean, dry and intact. ASSESSMENT: Status post total hip arthroplasty. PLAN: The plan at this point is for is to discharge today as he meets all discharge criteria. #[id number] [facility]
--- NOTE | 2020-07-31 09:28 | OP ---
DATE OF PROCEDURE: 07/29/20 PREOPERATIVE DIAGNOSIS: 1. Right hip osteoarthritis. POSTOPERATIVE DIAGNOSIS: 1. Right hip osteoarthritis. PROCEDURE: 1. Total hip arthroplasty. SURGEON: Baldemar Rabago MD. METALLURGIST HELPER: Aj López CST, SA-C. ANESTHESIA: General anesthesia. COMPLICATIONS: None. FINDINGS: Severe osteoarthritis of the hip. INDICATION: Edward has a very long history of hip pain which has been getting progressively worse. Because of his ongoing hip pain, he has requested operative intervention. After discussing the risks, benefits and alternatives to operative therapy, the patient has given informed consent for total hip arthroplasty. PROCEDURE: The patient was brought to the Operating Room and placed in supine position. General anesthesia was induced and the patient was transitioned into the lateral decubitus position. The leg and hemipelvis were then sterilely prepped and draped. Following prepping and draping, an incision was made directly over the greater trochanter and femur. Dissection was carried down to the iliotibial band. The IT band was split along its course and the abductor musculature was identified. The anterior one-third of the abductor musculature was elevated off of the trochanter. The capsule was identified and sharply incised. The hip was dislocated and bone graft was harvested from the femoral head. The primary femoral neck cut was made. The acetabulum was identified and the acetabular labrum along with the other intervening soft tissues were removed. After that, the acetabulum was reamed sequentially and a size 53 reamer was used as the final reamer to accommodate a size 54 cup. Following that, the cup was impacted into place. The cup's fixation was augmented with 3 screws. The cup liner was placed and attention was focused on the femur. The canal finder was used to identify the canal and sequential broach was used. A size 4 broad was used as final broach and left in place and trial reduction was performed. Following trial reduction, the hip was reduced and taken through a range of motion. There was no impingement. The leg lengths were checked and found to be equal. The hip was then dislocated and trial component was removed. The wound was thoroughly irrigated and the final component was impacted. The hip was reduced and again taken through a range of motion. Leg lengths were checked and there was no evidence of impingement. There was also no evidence of any significant leg length discrepancy. The wound was again thoroughly irrigated and the abductor musculature was sutured back to its anatomic position. The iliotibial band was closed and the skin was closed with a combination of running and interrupted subcuticular stitches. Sterile dressings were placed. The patient was awoken from anesthesia and taken to Recovery. POSTOPERATIVE PLAN: The patient will begin partial weightbearing on postoperative day 1. #[id number] MTDD
[2020-08-01] MEDS ORDERED: MAGNESIUM HYDROXIDE 30 ML UD PO ONE (21:00)
[2020-08-01] MEDS ORDERED: BISACODYL SUPPOSITORY 10 MG PR ONE (21:00)
--- NOTE | 2020-08-19 12:11 | RAD ---
XR HIP 2 OR MORE VIEWS HISTORY: 50 years Male post-op COMPARISON: Same day pelvis radiographs. TECHNIQUE: AP and frog-leg views of the right hip. IMPRESSION: Status post right hip arthroplasty. Imaged hardware appears intact and normal in alignment. No periprosthetic fracture observed by radiography. Postsurgical changes noted in the overlying soft tissues. Electronically signed by: Bryan Crisostomo MD 08/19/2020 12:09 PM [facility]
== END 2020-07-30 11:30 | disposition home or self-care (01) | DRG 470 ==
LOC: AMB 05:51 → MS 10:57
PROVIDERS: ADMIT Orthopaedic Surgery; ATTEND Orthopaedic Surgery
PROC: 0SR902A Replacement of Right Hip Joint with Metal on Polyethylene Synthetic Substitute, Uncemented, Open Approach (ICD-10-PCS; principal; 2020-07-29 07:00)
DX: M16.11 Unilateral primary osteoarthritis, right hip (principal); I10 Essential (primary) hypertension; Z79.899 Other long term (current) drug therapy; D75.1 Secondary polycythemia